=== PATIENT | female | born 1980 | race Hispanic/Latino ===

== ENCOUNTER 2017-05-21 14:03 | Emergency (ER) | payer MEDICAID ==
[2017-05-21 14:46] VITALS: BP 122/80; TEMP 98
[2017-05-21 14:47] VITALS: BMI 23.0
[2017-05-21 14:50] VITALS: PULSE 84; O2SAT 99
[2017-05-21 15:35] VITALS: RESP 16
[2017-05-21] MEDS ORDERED: Naproxen 500 MG TAB PO STA (16:44)
[2017-05-21] MEDS ORDERED: Naproxen 500 MG TAB PO ONE (16:58)
--- NOTE | 2017-05-21 17:54 | RAD ---
PROCEDURE: Left Foot Radiographs. HISTORY: pain COMPARISON: None. FINDINGS: BONES: No acute fracture or destructive bony lesion identified. JOINTS: There is a mild hallux valgus deformity SOFT TISSUES: Normal. OTHER FINDINGS: None. IMPRESSION: Mild hallux valgus deformity. No acute fracture or dislocation.
--- NOTE | 2017-05-21 18:04 | ED PDOC ---
Lower Extremity Pain/Injury Time Seen by Provider: 05/21/17 15:33 Chief Complaint (Nursing): Lower Extremity Problem/Injury Chief Complaint (Provider): Left foot pain History Per: Patient History/Exam Limitations: no limitations Onset/Duration Of Symptoms: Days (2) Current Symptoms Are (Timing): Still Present Additional Complaint(s): 36yo female, presents to ED with complaints of left foot pain for the past two days. She states the pain is mostly on the plantar aspect of her foot and is worse with walking. She denies any weakness, numbness, swelling, tenderness, decreased ROM of the foot. She denies any other medical complaints. Past Medical History Reviewed: Historical Data, Nursing Documentation, Vital Signs Vital Signs: Last Vital Signs Temp 98 F 05/21/17 14:48 Pulse 84 05/21/17 14:48 Resp 16 05/21/17 15:34 BP 122/80 05/21/17 14:48 Pulse Ox 99 05/21/17 14:48 - Medical History PMH: Back Problems, Chronic Pain - Surgical History Surgical History: No Surg Hx - Family History Family History: States: Unknown Family Hx - Immunization History Hx Tetanus Toxoid Vaccination: No Hx Influenza Vaccination: Yes (2016) Hx Pneumococcal Vaccination: No - Home Medications Home Medications: Ambulatory Orders Medication Instructions Recorded Naproxen 500 mg PO BID PRN #20 tablet 05/21/17 - Allergies Allergies/Adverse Reactions: Allergies Allergy/AdvReac Type Severity Reaction Status Date / Time No Known Allergies Allergy Verified 04/08/17 01:22 Review of Systems ROS Statement: Except As Marked, All Systems Reviewed And Found Negative Constitutional: Negative for: Fever Musculoskeletal: Positive for: Foot Pain (left) Neurological: Negative for: Weakness, Numbness Physical Exam - Reviewed Nursing Documentation Reviewed: Yes Vital Signs Reviewed: Yes - Physical Exam Comments: GENERAL APPEARANCE: Patient is awake, alert, oriented x 3, in moderate painful distress. SKIN: Warm, dry; (-) cyanosis. EXTREMITIES: (-) tenderness, (+) FROM, (-) edema, (-) deformity. Distal pulses good bilaterally. NEURO AND PSYCH: Mental status as above. Intact sensation bilaterally; normal strength in extension of the knees, plantar and dorsiflexion of the toes. DTRs symmetric. - ECG O2 Sat by Pulse Oximetry: 99 (RA) Pulse Ox Interpretation: Normal Medical Decision Making Medical Decision Making: Impression: Right foot pain Plan: -- XR Right foot -- Naproxen 500 mg PO Right foot x-ray : (-) fracture, (-) dislocation, as read by PA. On reevaluation, patient reports significant improvement. Patient laying in bed comfortably in no acute distress, feels comfortable going home. Given crutches. Advised to follow up with pod clinic in 1-2 days without fail. Advised to take medication as prescribed. Return to the emergency room at any time for any new or worsening symptoms. Patient states he fully agrees with and understands discharge instructions. States that he agrees with the plan and disposition. Verbalized and repeated discharge instructions and plan. I have given the patient opportunity to ask any additional questions. Scribe Attestation: Documented by Mony Joel acting as a scribe for MARIA M Coleman Provider Attestation: All medical record entries made by the Scribe were at my direction and personally dictated by me. I have reviewed the chart and agree that the record accurately reflects my personal performance of the history, physical exam, medical decision making, and the department course for this patient. I have also personally directed, reviewed, and agree with the discharge instructions and disposition. Disposition - Clinical Impression Clinical Impression: Foot sprain - Patient ED Disposition Is Patient to be Admitted: No Counseled Patient/Family Regarding: Studies Performed, Diagnosis, Need For Followup, Rx Given - Disposition Referrals: Podiatry Clinic [Outside] Disposition: Routine/Home Disposition Time: 18:00 Condition: STABLE Additional Instructions: Follow up with the clinic in 2 days, take medication as prescribed, rest, ice and elevate your foot. 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
== END 2017-05-21 18:18 | disposition home or self-care (01) ==
LOC: H.ER 14:03
DX: S93.602A Unspecified sprain of left foot, initial encounter (principal); X50.9XXA Other and unspecified overexertion or strenuous movements or postures, initial encounter; Y92.89 Other specified places as the place of occurrence of the external cause; G89.29 Other chronic pain

== ENCOUNTER 2017-06-05 20:59 | Emergency (ER) | payer MEDICAID ==
[2017-06-05 20:59] VITALS: BMI 23.0
[2017-06-05 21:04] VITALS: BP 141/98; PULSE 90; RESP 16; TEMP 98; O2SAT 97
[2017-06-05 22:08] LABS: BASO # 0.1 K/uL (0.0-0.2); BASO % 0.5 % (0.0-2.0); EOS # 0.1 K/uL (0.0-0.7); EOS % 0.8 % (0.0-4.0); HEMOGLOBIN 11.9 g/dL (12.0-16.0); LYMPH # 3.5 K/uL (1.0-4.3); LYMPH % 33.1 % (20.0-40.0); MEAN CELL VOLUME 85.2 fl (81.0-99.0); MEAN CORPUSCULAR HEMOGLOBIN 27.8 pg (27.0-31.0); MEAN CORPUSCULAR HGB CONC 32.6 g/dL (33.0-37.0); MEAN PLATELET VOLUME 7.8 fl (7.2-11.7); MONO # 0.7 K/uL (0.0-0.8); MONO % 6.9 % (0.0-10.0); NEUT # 6.3 K/uL (1.8-7.0); NEUT % 58.7 % (50.0-75.0); NRBC % 0.1 % (0.0-0.0); RBC 4.28 Mil/uL (3.80-5.20); RED CELL DISTRIBUTION WIDTH 14.4 % (11.5-14.5); WHITE BLOOD COUNT 10.7 K/uL (4.8-10.8)
[2017-06-05 22:11] LABS: ACETAMINOPHEN < 10.0 ug/ml (10.0-30.0); SALICYLATE < 1.0 mg/dl
[2017-06-05 22:12] LABS: BLOOD UREA NITROGEN 24 mg/dl (7-17); CALCIUM 9.9 mg/dL (8.4-10.2); GFR AFRICAN-AMERICAN > 60; GFR NON-AFRICAN AMERICAN > 60
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
[2017-06-05 22:38] LABS: BARBITURATES, UR NEGATIVE (NEGATIVE); BENZODIAZEPINES, UR NEGATIVE (NEGATIVE); OPIATES, UR NEGATIVE (NEGATIVE); PHENCYCLIDINE, UR NEGATIVE (NEGATIVE)
[2017-06-05 23:41] LABS: SQUAMOUS EPITHIAL 5 /hpf (0-5); URINE BACTERIA RARE (<OCC); URINE BILIRUBIN NEGATIVE (NEGATIVE); URINE BLOOD LARGE (NEGATIVE); URINE CLARITY CLOUDY (Clear); URINE COLOR STRAW (YELLOW); URINE GLUCOSE (UA) NEG (Normal); URINE LEUKOCYTE ESTERASE LARGE Leu/uL (Negative); URINE PROTEIN NEGATIVE (NEGATIVE); URINE UROBILINOGEN 0.2-1.0 mg/dL (0.2-1.0)
== END 2017-06-06 03:18 | disposition home or self-care (01) ==
LOC: H.ER 20:59
DX: F31.9 Bipolar disorder, unspecified (principal); G89.29 Other chronic pain

== ENCOUNTER 2017-06-06 13:08 | Inpatient (IN) | payer MEDICAID ==
[2017-06-06 13:08] VITALS: BMI 23.0
[2017-06-06 13:27] VITALS: O2SAT 99
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
[2017-06-06 15:25] LABS: HEMOGLOBIN 11.6 g/dL (12.0-16.0); MEAN CELL VOLUME 85.3 fl (81.0-99.0); MEAN CORPUSCULAR HEMOGLOBIN 27.8 pg (27.0-31.0); MEAN CORPUSCULAR HGB CONC 32.6 g/dL (33.0-37.0); RBC 4.17 Mil/uL (3.80-5.20); RED CELL DISTRIBUTION WIDTH 14.6 % (11.5-14.5); WHITE BLOOD COUNT 7.4 K/uL (4.8-10.8)
[2017-06-06 15:38] LABS: ALB/GLOB RATIO 1.3 (1.0-2.1); ALBUMIN 4.2 g/dL (3.5-5.0); ALT/SGPT 52 U/L (9-52); AST/SGOT 32 U/L (14-36); BLOOD UREA NITROGEN 21 mg/dl (7-17); CALCIUM 9.3 mg/dL (8.4-10.2); GFR AFRICAN-AMERICAN > 60; GFR NON-AFRICAN AMERICAN > 60
[2017-06-06 17:41] LABS: BARBITURATES, UR NEGATIVE (NEGATIVE); BENZODIAZEPINES, UR NEGATIVE (NEGATIVE); OPIATES, UR NEGATIVE (NEGATIVE); PHENCYCLIDINE, UR NEGATIVE (NEGATIVE)
[2017-06-06 17:46] LABS: SQUAMOUS EPITHIAL 23 /hpf (0-5); URINE BILIRUBIN NEGATIVE (NEGATIVE); URINE BLOOD LARGE (NEGATIVE); URINE CLARITY CLOUDY (Clear); URINE COLOR YELLOW (YELLOW); URINE GLUCOSE (UA) NEG (Normal); URINE LEUKOCYTE ESTERASE MOD Leu/uL (Negative); URINE PROTEIN 100 mg/dL (NEGATIVE); URINE UROBILINOGEN 0.2-1.0 mg/dL (0.2-1.0)
[2017-06-06] MEDS ORDERED: DiphenhydrAMINE 50 mg/ml Inj IM PRN (20:06)
[2017-06-06] MEDS ORDERED: Alum-Mag Hydrox-Simethicone Susp (30 mL) PO PRN (20:06)
[2017-06-06] MEDS ORDERED: Magnesium Hydroxide Susp 30 ml UD PO PRN (20:06)
--- NOTE | 2017-06-07 00:53 | PCM.BM ---
<Amarilis Chamberlain Ramona - Last Filed: 06/07/17 00:51> Treatment Plan Problems - Problems identified on initial assessmt Agitated/aggressive behavior Date Initiated: 06/07/17 Time Initiated: 00:51 Assessment reference: NA Status: Active Medication nonadherence Date Initiated: 06/07/17 Time Initiated: 00:52 Assessment reference: NA Status: Active Treatment assets and liabiliti Patient Assests: self-reliant, ADL independent, physically healthy, negotiates basic needs Patient Liabilities: poor support system - Milieu Protocol Maintain good personal hygiene: daily Encourage regular showers, every shift Remind patient to perform daily oral care Conduct patient checks and document Observation sheet: Q15 minutes Maintain personal safety: every shift Educate patient to report safety concerns to staff, every shift Monitor environment for contraband/sharps Medication safety: Monitor for expected outcome, potential side effects: every shift, Assess barriers to learning: every shift, Assess readiness for medication education: every shift <Lloyd Mccullough - Last Filed: 06/09/17 15:40> Family Contact Family involvement: Famaggie/SO not involved Family contact: Patient declines to allow family contact at present Family contact name: Pt denied. - Goals for Treatment Patient goals for treatment: Pt is currently floridly manic and lacks all insight into her current illness. Pt did report that she would like help obtaining housing. Discharge/Continuing Care - Education Needs Education Needs: Patient Medication, Patient Diagnosis/Disease Process, Patient Coping Skills, Patient Placement options, Patient Community resources, Patient Personal Hygiene/Grooming, Patient Aftercare Safety Plan - Discharge Discharge Criteria: Tolerates medication w/o severe side effects, Free of paranoid thoughts, Free of agitation, Normal sleep pattern, Ability to care for self, Reduction of target symptoms Discharge to:: Residential - Treatment Team Participation Discussed with Family/SO: No Was Patient/Family/SO present at Treatment Team Meeting: Yes <Marcia Walsh - Last Filed: 06/10/17 13:11> Discharge/Continuing Care - Treatment Team Participation Patient/Family/SO Statement: 06/10/17 13:09 Patient attended tx team this morning. Pt. continues to present with acute sxs of psychosis. Pt. presents as disorganized and tangential. Pt. presents with fight of ideas and loose associations. Pt. easily irritable but responds well to redirection. Speech: pressured. Insight into precursors to hospitalization, illness and need for tx is poor stating Im here for an evaluation. I dont need it. Pt. reports significant hx of inpatient psychiatric hospitalizations with [facility] (3 admissions) and [facility] (last admission: over 1 year ago, hospitalized for 12 months) but is unable to provide precursors to admissions. Pt. reports hx of PHP with [facility] but denies currently being connected to OPS. Pt. reports hx of arrests but was unable to provide tx team with charges or current outstanding legal issues. Pt. declined being placed on injectable despite tx team recommendation, stating I want to be a human being. I dont want to put sh*t into my body. Pt. declined to provide consent for family collateral despite staff encouragement. <Meliza Rausch - Last Filed: 06/14/17 10:01> - Diagnosis (1) Psychosis Status: Acute Interventions: pharmacotherapy 06/14/17 10:01
[2017-06-07 08:10] LABS: T4 7.69 ug/dl (5.5-11.0)
--- NOTE | 2017-06-07 11:27 | CARD ---
APPROVED REPORT EKG Measurement Heart [id number] <Conclusion> Normal sinus rhythm Normal ECG
[2017-06-07] MEDS: Risperidone M tab 1 MG PO SCH (14:09)
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
--- NOTE | 2017-06-07 18:35 | CP.PCM.CON ---
History of Present Illness - History of Present Illness History of Present Illness: 36 y/o female with no clear PMH brought to ER for crisis evaluation from [facility] after an altercation with staff there. Patient states that she lives in the [place] [facility] to live close to [facility] to [facility].She states that she was harassed at [place] [facility] by staff there and does not understand why she is brought here for psychiatric eval.Denies any psychiatric disorder and does not take any medications. She states that was told to go for group programs for bipolar disorder so she could get housing ? Denies any chest pain , SOB urinary symptoms or changes in bowel movements. Asking for Xray of left hip that according to her was dislocated 2 years ago , but she is able to walk with no problem and denies any pain . States that sometimes experiences heart pain and palpitations and her heart gets bigger , pointing to her left breast. Denies any visual or auditory hallucinations. Denies being suicidal. Allergies: NKDA PMH: Bipolar ?, hip dislocation 2 years ago in senior care Medications; [employer] [facility] ; none Family history ; None Social history; Lives in [facility] , , has no children , parents live in [place] , denies smoking ,ETOH or drug abuse ROS ; 10 point review of system negative except above Review of Systems - Review of Systems All systems: reviewed and no additional remarkable complaints except Past Patient History - Infectious Disease Hx of Infectious Diseases: None - Tetanus Immunizations Tetanus Immunization: Unknown - Past Medical History & Family History Past Medical History?: No Past Family History: Reviewed and not pertinent - Past Social History Smoking Status: Never Smoked Chewing Tobacco Use: No Cigar Use: No Alcohol: None Drugs: Denies - CARDIAC Hx Cardiac Disorders: No Hx Hypertension: No - PULMONARY Hx Respiratory Disorders: No Hx Tuberculosis: No - NEUROLOGICAL Hx Neurological Disorder: No Hx Seizures: No - HEENT Hx HEENT Problems: No - RENAL Hx Chronic Kidney Disease: No - ENDOCRINE/METABOLIC Hx Endocrine Disorders: No - HEMATOLOGICAL/ONCOLOGICAL Hx Blood Disorders: No Hx Human Immunodeficiency Virus (HIV): No - INTEGUMENTARY Hx Dermatological Problems: No - MUSCULOSKELETAL/RHEUMATOLOGICAL Hx Musculoskeletal Disorders: Yes (SEE COMMENT) Hx Falls: No Hx Osteomyelitis: Yes Other/Comment: osteomyelitis infection - required picc line 07/2016 - GASTROINTESTINAL Hx Gastrointestinal Disorders: No - GENITOURINARY/GYNECOLOGICAL Hx Genitourinary Disorders: No Hx Sexually Transmitted Disorders: No - PSYCHIATRIC Hx Substance Use: No - SURGICAL HISTORY Hx Surgeries: No - ANESTHESIA Hx Anesthesia: No Meds Allergies/Adverse Reactions: Allergies Allergy/AdvReac Type Severity Reaction Status Date / Time No Known Allergies Allergy Verified 06/05/17 21:00 - Medications Medications: Current Medications Acetaminophen (Tylenol 325mg Tab) 650 mg PO Q4 PRN PRN Reason: Pain, moderate (4-7) Al Hydrox/Mg Hydrox/Simethicone (Maalox Plus 30 Ml) 30 ml PO Q4 PRN PRN Reason: Dyspepsia Benztropine Mesylate (Cogentin) 0.5 mg PO HS [facility] Benztropine Mesylate (Cogentin) 0.5 mg PO DAILY [facility] Last Admin: 06/07/17 14:11 Dose: 0.5 mg Diphenhydramine HCl (Benadryl) 50 mg IM Q6 PRN PRN Reason: Extrapyramidal S/S Unable PO Diphenhydramine HCl (Benadryl) 50 mg PO Q6 PRN PRN Reason: Extrapyramidal Symptoms Haloperidol (Haldol) 5 mg PO Q4 PRN PRN Reason: Agitation Haloperidol Lactate (Haldol) 5 mg IM Q4 PRN PRN Reason: Agitation, Unable to Take PO Lorazepam (Ativan) 2 mg IM Q4 PRN PRN Reason: Anxiety/Agitation,Unable PO Lorazepam (Ativan) 2 mg PO Q4 PRN PRN Reason: Anxiety/Agitation Magnesium Hydroxide (Milk Of Magnesia) 30 ml PO HS PRN PRN Reason: Constipation Risperidone (Risperdal M-Tab) 1 mg PO DAILY [facility] Last Admin: 06/07/17 14:09 Dose: 1 mg Risperidone (Risperdal M-Tab) 1 mg PO [facility] Physical Exam - Constitutional Appears: Well, No Acute Distress - Head Exam Head Exam: ATRAUMATIC, NORMAL INSPECTION, NORMOCEPHALIC - Eye Exam Eye Exam: EOMI, Normal appearance, PERRL Pupil Exam: NORMAL ACCOMODATION - ENT Exam ENT Exam: Mucous Membranes Moist, Normal Exam - Neck Exam Neck exam: Positive for: Full Rom, Normal Inspection - Respiratory Exam Respiratory Exam: Clear to Auscultation Bilateral, NORMAL BREATHING PATTERN. absent: Rales, Rhonchi, Wheezes - Cardiovascular Exam Cardiovascular Exam: REGULAR RHYTHM, RRR, +S1, +S2. absent: JVD - GI/Abdominal Exam GI & Abdominal Exam: Normal Bowel Sounds, Soft. absent: Distended, Guarding, Rebound, Tenderness - Rectal Exam Rectal Exam: Deferred - Extremities Exam Extremities exam: Positive for: normal capillary refill, normal inspection, pedal pulses present. Negative for: calf tenderness, pedal edema - Back Exam Back exam: NORMAL INSPECTION - Neurological Exam Neurological exam: Alert, CN II-XII Intact, Oriented x3, Reflexes Normal - Psychiatric Exam Psychiatric exam: Flat Affect - Skin Skin Exam: Dry, Normal Color, Warm Results - Vital Signs Recent Vital Signs: Last Vital Signs Temp 96.6 F L 06/07/17 09:18 Pulse 84 06/07/17 09:18 Resp 18 06/07/17 09:18 BP 133/83 06/07/17 09:18 Pulse Ox 99 06/06/17 18:23 - Labs Result Diagrams: 06/06/17 15:15 06/06/17 15:15 Labs: Laboratory Results - last 24 hr 06/07/17 06/07/17 06/07/17 07:29 07:29 07:29 Hemoglobin A1c 5.7 Triglycerides 88 Cholesterol 177 LDL Cholesterol Direct 116 HDL Cholesterol 42 Thyroxine (T4) 7.69 TSH 3rd Generation 0.64 RPR Nonreactive Assessment & Plan - Assessment and Plan (Free Text) Assessment: 36 y/o female with no clear PMH brought to ER for crisis evaluation from [facility] after an altercation with staff there. Patient states that she lives in the [place] [facility] to live close to [facility] to [facility].She states that she was harassed at [place] [facility] by staff there and does not understand why she is brought here for psychiatric eval.Denies any psychiatric disorder and does not take any medications. She states that was told to go for group programs for bipolar disorder so she could get housing ? Denies any chest pain , SOB urinary symptoms or changes in bowel movements. Asking for Xray of left hip that according to her was dislocated 2 years ago , but she is able to walk with no problem and denies any pain . States that sometimes experiences heart pain and palpitations and her heart gets bigger , pointing to her left breast. Denies any visual or auditory hallucinations. Denies being suicidal. 1. Psychiatric disorder management as per psych patient is medically stable check urine culture since UA shows WBc >20 check TSH , RPR
[2017-06-07] MEDS ORDERED: Risperidone M tab 1 MG PO SCH (22:00)
[2017-06-08] MEDS: Risperidone M tab 1 MG PO SCH (09:53)
--- NOTE | 2017-06-08 15:13 | PCM.PYCHPN ---
Psychiatric Progress Note - Psychiatric Progress Note Patient seen today, length of contact: pt evaluated discussed with team chart reviewed Patient Chief Complaint: I have no problem the longterm staff are after me Problems Identified/Issues Discussed: pt evaluated continues to be manic, overproductive and loud speech, delusional thought process with delusions of persecution towards longterm staff pt has no insight into illness, deniedsuicidal or homicidal ideations denied command hallucinations Medical Problems: histoy of one hospitalization , non compliant DSM 5 Symptoms Update: bipolar disorder mre manic severe with psychotic features Medication Change: Yes (increase risperidone) Medical Record Reviewed: Yes Mental Status Examination - Cognitive Function Orientation: Person, Place Memory: Intact Attention: Poor Concentration: Poor Association: Loose Fund of Knowledge: Poor Decription of patient's judgement and insights: poor insight and judgment - Mood Mood: Anxious - Affect Additional comments: labile - Speech Speech: Loud, Pressured - Formal Thought Process Formal Thought Process: Delusions, Paranoia, Loosening of associations, Flight of ideas, Circumstantial Psychotic Thoughts and Behaviors: delusions of persecution - Suicidal Ideation Suicidal Ideation: No - Homicidal Ideation Homicidal Ideation: No Goal/Treatment Plan - Goal/Treatment Plan Need for Continued Stay: Severe depression anxiety, Discharge may exacerbated symptoms Progress Toward Problem(s) and Goals/Treatment Plan: start risperidone 1mg daily and 2mg qhs, cogentin 0.5mg bid with paln to uptitrate start trileptal 150mg bid follow up on psychopharmacological effects and side effect profile Estimated Date of D/C: 06/14/17
[2017-06-08] MEDS: Risperidone M TAB 2 MG PO SCH (21:12)
[2017-06-09] MEDS: Risperidone M tab 1 MG PO SCH (09:05)
--- NOTE | 2017-06-09 14:11 | PCM.PYCHPN ---
Psychiatric Progress Note - Psychiatric Progress Note Patient seen today, length of contact: pt evaluated discussed with team chart reviewed Patient Chief Complaint: I am here because my leg hurts Problems Identified/Issues Discussed: pt evaluated continues to be manic, labile, irritable , speech over productive and loud , superficialy cooperative , delusional thought process with delusions of persecution towards residential staff pt has no insight into illness, stating she is in the hospital for leg pain, pt compliant with medications denied suicidal or homicidal ideations denied command hallucinations Medical Problems: histoy of one hospitalization , non compliant DSM 5 Symptoms Update: bipolar I disorder manic severe with psychotic features Medication Change: Yes (increase risperidone) Medical Record Reviewed: Yes Mental Status Examination - Cognitive Function Orientation: Person, Place Memory: Intact Attention: WNL Concentration: Poor Association: Loose Fund of Knowledge: Poor Decription of patient's judgement and insights: poor insight and judgment - Mood Mood: Anxious, Euphoric - Affect Additional comments: labile, irritable - Speech Speech: Loud, Pressured - Formal Thought Process Formal Thought Process: Delusions, Paranoia, Loosening of associations, Flight of ideas, Circumstantial Psychotic Thoughts and Behaviors: delusions of persecution - Suicidal Ideation Suicidal Ideation: No - Homicidal Ideation Homicidal Ideation: No Goal/Treatment Plan - Goal/Treatment Plan Need for Continued Stay: Severe depression anxiety, Discharge may exacerbated symptoms Progress Toward Problem(s) and Goals/Treatment Plan: increase risperidone 2mg daily and 2mg qhs, cogentin 0.5mg bid with paln to uptitrate increase trileptal 300 mg bid follow up on psychopharmacological effects and side effect profile Estimated Date of D/C: 06/14/17
[2017-06-09] MEDS: Risperidone M TAB 2 MG PO SCH (21:19)
[2017-06-10] MEDS ORDERED: Risperidone M TAB 2 MG PO SCH (09:00)
--- NOTE | 2017-06-10 15:36 | PCM.PYCHPN ---
Psychiatric Progress Note - Psychiatric Progress Note Patient seen today, length of contact: pt evaluated discussed with team chart reviewed Patient Chief Complaint: I have been to the hospital many times but it is the police mistake Problems Identified/Issues Discussed: pt evaluated with treatment team continues to be manic, labile, irritable , speech over productive and loud , superficially cooperative ,presenting with loose association delusions of persecution reporting being hospitalized multiple times due to the unfairness of the police towards her , pt indicated being hospitalized three times in a [facility] hospital and one time in [facility] but refused to shre the charges that led to this hospitalization with the team pt has no insight into illness, stating she is in the hospital for leg pain, denied suicidal or homicidal ideations denied command hallucinations Medical Problems: histoy of one hospitalization , non compliant DSM 5 Symptoms Update: schizoaffective disorder bipolar Medication Change: Yes (increase risperidone) Medical Record Reviewed: Yes Mental Status Examination - Cognitive Function Orientation: Person, Place Memory: Intact Attention: WNL Concentration: Poor Association: Loose Fund of Knowledge: Poor Decription of patient's judgement and insights: poor insight and judgment - Mood Mood: Anxious, Euphoric - Speech Speech: Loud, Pressured - Formal Thought Process Formal Thought Process: Delusions, Paranoia, Loosening of associations, Flight of ideas, Circumstantial Psychotic Thoughts and Behaviors: delusions of persecution - Suicidal Ideation Suicidal Ideation: No - Homicidal Ideation Homicidal Ideation: No Goal/Treatment Plan - Goal/Treatment Plan Need for Continued Stay: Severe depression anxiety, Discharge may exacerbated symptoms Progress Toward Problem(s) and Goals/Treatment Plan: increase risperidone 3mg daily and 3mg qhs, cogentin 0.5mg bid increase trileptal 300 mg bid follow up on psychopharmacological effects and side effect profile Estimated Date of D/C: 06/14/17
[2017-06-10] MEDS: OXcarbazepine 300 mg/5 ml Syringe PO SCH (17:41)
[2017-06-10] MEDS: Risperidone M tab 1 MG PO SCH (21:03)
[2017-06-11] MEDS: Risperidone M tab 1 MG PO SCH ×2 (10:11→21:12)
[2017-06-11] MEDS: OXcarbazepine 300 mg/5 ml Syringe PO SCH ×2 (10:11→17:54)
--- NOTE | 2017-06-11 14:58 | PCM.PYCHPN ---
Psychiatric Progress Note - Psychiatric Progress Note Patient seen today, length of contact: pt evaluated discussed with team chart reviewed Patient Chief Complaint: It is not my fault . the detention people are against me Problems Identified/Issues Discussed: pt evaluated , calmer , more cooperative with the television script writer, speech less pressured , reported feeling less anxious, continues to have delusions of persecution towards detention staff, no insight into illness pt denied suicidal or homicidal ideations denied command hallucinations , no reported side effects of medications Medical Problems: histoy of one hospitalization , non compliant DSM 5 Symptoms Update: schizoaffective disorder bipolar Medication Change: Yes (increase risperidone) Medical Record Reviewed: Yes Mental Status Examination - Cognitive Function Orientation: Person, Place Memory: Intact Attention: WNL Concentration: Poor Association: Loose Fund of Knowledge: Poor Decription of patient's judgement and insights: poor insight and judgment - Mood Mood: Anxious, Euphoric - Speech Speech: Loud, Pressured - Formal Thought Process Formal Thought Process: Delusions, Paranoia, Loosening of associations, Flight of ideas, Circumstantial Psychotic Thoughts and Behaviors: delusions of persecution - Suicidal Ideation Suicidal Ideation: No - Homicidal Ideation Homicidal Ideation: No Goal/Treatment Plan - Goal/Treatment Plan Need for Continued Stay: Severe depression anxiety, Discharge may exacerbated symptoms Progress Toward Problem(s) and Goals/Treatment Plan: increase risperidone 3mg daily and 3mg qhs, cogentin 0.5mg bid increase trileptal 300 mg bid follow up on psychopharmacological effects and side effect profile Estimated Date of D/C: 06/14/17
[2017-06-12] MEDS: OXcarbazepine 300 mg/5 ml Syringe PO SCH ×2 (09:58→16:58)
[2017-06-12] MEDS: Risperidone M tab 1 MG PO SCH ×2 (10:01→21:38)
--- NOTE | 2017-06-12 15:02 | PCM.PYCHPN ---
Psychiatric Progress Note - Psychiatric Progress Note Patient seen today, length of contact: pt evaluated discussed with team chart reviewed Patient Chief Complaint: I am good and I want to go to school Problems Identified/Issues Discussed: pt evaluated , calmer , more cooperative with the radio news writer, speech less pressured , reported feeling less anxious, continues to have delusions of persecution towards custodial staff, continues to report she is in the hospital only for leg pain no insight into illness pt denied suicidal or homicidal ideations denied command hallucinations , no reported side effects of medications Medical Problems: histoy of one hospitalization , non compliant DSM 5 Symptoms Update: schizoaffective disorder bipolar Medication Change: No Medical Record Reviewed: Yes Mental Status Examination - Cognitive Function Orientation: Person, Place Memory: Intact Attention: WNL Concentration: Poor Association: Loose Fund of Knowledge: Poor Decription of patient's judgement and insights: poor insight and judgment - Mood Mood: Anxious, Euphoric - Speech Speech: Loud, Pressured - Formal Thought Process Formal Thought Process: Delusions, Paranoia, Loosening of associations, Flight of ideas, Circumstantial Psychotic Thoughts and Behaviors: delusions of persecution - Suicidal Ideation Suicidal Ideation: No - Homicidal Ideation Homicidal Ideation: No Goal/Treatment Plan - Goal/Treatment Plan Need for Continued Stay: Severe depression anxiety, Discharge may exacerbated symptoms Progress Toward Problem(s) and Goals/Treatment Plan: risperidone 3mg daily and 3mg qhs, cogentin 0.5mg bid increase trileptal 300 mg bid follow up on psychopharmacological effects and side effect profile group and suppoertive therapy Estimated Date of D/C: 06/14/17
[2017-06-13] MEDS: Risperidone M tab 1 MG PO SCH ×2 (09:06→21:14)
[2017-06-13] MEDS: OXcarbazepine 300 mg/5 ml Syringe PO SCH (09:07)
--- NOTE | 2017-06-13 19:28 | PCM.PYCHPN ---
Psychiatric Progress Note - Psychiatric Progress Note Patient seen today, length of contact: pt evaluated discussed with team chart reviewed Patient Chief Complaint: I want a letter for long term to take me Problems Identified/Issues Discussed: pt evaluated , continues to be superficial with limited insight into illness, pt continues to refuse to have the treatment team to contact her family or any other collateral, discussed with pt starting risperidone consta to ensure compliance, pt declined pt continues to think she is in the hospital only for medical reasons and refusing psychiatric after care pt denied suicidal or homicidal ideations denied command hallucinations , no reported side effects of medications Medical Problems: histoy of one hospitalization , non compliant DSM 5 Symptoms Update: schizoaffective disorder bipolar Medication Change: Yes Medical Record Reviewed: Yes Mental Status Examination - Cognitive Function Orientation: Person, Place Memory: Intact Attention: WNL Concentration: Poor Association: Loose Fund of Knowledge: Poor Decription of patient's judgement and insights: poor insight and judgment - Mood Mood: Anxious, Euphoric - Speech Speech: Loud, Pressured - Formal Thought Process Formal Thought Process: Delusions, Paranoia, Loosening of associations, Flight of ideas, Circumstantial Psychotic Thoughts and Behaviors: delusions of persecution - Suicidal Ideation Suicidal Ideation: No - Homicidal Ideation Homicidal Ideation: No Goal/Treatment Plan - Goal/Treatment Plan Need for Continued Stay: Severe depression anxiety, Discharge may exacerbated symptoms Progress Toward Problem(s) and Goals/Treatment Plan: risperidone 3mg daily and 3mg qhs, cogentin 0.5mg bid increase trileptal 450 mg bid follow up on psychopharmacological effects and side effect profile group and suppoertive therapy Estimated Date of D/C: 06/14/17
[2017-06-14] MEDS: Risperidone M tab 1 MG PO SCH ×2 (09:54→21:30)
--- NOTE | 2017-06-14 12:59 | RAD ---
PROCEDURE: CHEST RADIOGRAPH, 1 VIEW HISTORY: rule out tb COMPARISON: None available. FINDINGS: LUNGS: Clear. PLEURA: No pneumothorax or pleural fluid seen. CARDIOVASCULAR: Normal. OSSEOUS STRUCTURES: No significant abnormalities. VISUALIZED UPPER ABDOMEN: Normal. OTHER FINDINGS: None. IMPRESSION: No active disease.
--- NOTE | 2017-06-14 13:20 | PCM.PYCHPN ---
Psychiatric Progress Note - Psychiatric Progress Note Patient seen today, length of contact: pt evaluated discussed with team chart reviewed Patient Chief Complaint: I do not need medications when I leave,I am not sick Problems Identified/Issues Discussed: pt evaluated , superficially cooperative ,continues to be labile , edgy, irritable , when discussing medications ,pt shows no insight into illness, stating she does not need medications and that after discharge she refuses to take medications or to follow up with psychiatrist, discussed with pt importance of medication compliance for ability to function and also starting risperidone constmarkus , pt declined , refusing to be linked to social service worker , refusing ICMS and refusing to give any family member information for collateral information pt continues to be grandiose and delusional pt denied suicidal or homicidal ideations denied command hallucinations , no reported side effects of medications Medical Problems: histoy of one hospitalization , non compliant DSM 5 Symptoms Update: schizoaffective disorder bipolar Medication Change: Yes (increase trileptal) Medical Record Reviewed: Yes Mental Status Examination - Cognitive Function Orientation: Person, Place Memory: Intact Attention: WNL Concentration: Poor Association: Loose Fund of Knowledge: Poor Decription of patient's judgement and insights: poor insight and judgment - Mood Mood: Anxious, Euphoric - Speech Speech: Loud, Pressured - Formal Thought Process Formal Thought Process: Delusions, Paranoia, Loosening of associations, Flight of ideas, Circumstantial Psychotic Thoughts and Behaviors: delusions of persecution - Suicidal Ideation Suicidal Ideation: No - Homicidal Ideation Homicidal Ideation: No Goal/Treatment Plan - Goal/Treatment Plan Need for Continued Stay: Severe depression anxiety, Discharge may exacerbated symptoms Progress Toward Problem(s) and Goals/Treatment Plan: risperidone 3mg daily and 3mg qhs, cogentin 0.5mg bid trileptal 450 mg bid pt referred for screening as she has poor insight into illness, refusing compliance with after care and with medications on discharge , pt needs further stabilization at intermediate care Estimated Date of D/C: 06/18/17
--- NOTE | 2017-06-15 08:34 | PCM.PYCHPN ---
Psychiatric Progress Note - Psychiatric Progress Note Patient seen today, length of contact: pt evaluated discussed with team chart reviewed Patient Chief Complaint: pt has remained very paranoid and disorganized with poor insight and poor judgement regarding her need for treatment and refusing to take meds and refusing to stay longer in hospital .pt is preoccupied with garbage in the [facility] and has racing thoughts with flights of ideation and rapidly exposive mood threatening to leave and remains a high risk to self and others if d/c and need further stabilization and need to be recsreened by [facility] for committment as pt has put in 48 hr letter requesting d/c which expires tonight and i strongly request [facility] to accept her for committment as she is very high risk patient Problems Identified/Issues Discussed: pt has remained very paranoid and easily irritible and labile with poor insight and poor judgement and still refusing meds .pt was screened and not accepted DSM 5 Symptoms Update: Bipolar disorder severe most recent [facility] with psychotic features Medication Change: Yes (increase trileptal) Medical Record Reviewed: Yes Mental Status Examination - Cognitive Function Orientation: Person, Place Memory: Intact Attention: WNL Concentration: Poor Association: Loose Fund of Knowledge: Poor - Mood Mood: Anxious, Euphoric - Speech Speech: Loud, Pressured - Formal Thought Process Formal Thought Process: Delusions, Paranoia, Loosening of associations, Flight of ideas, Circumstantial - Suicidal Ideation Suicidal Ideation: No - Homicidal Ideation Homicidal Ideation: No Goal/Treatment Plan - Goal/Treatment Plan Need for Continued Stay: Severe depression anxiety, Discharge may exacerbated symptoms Progress Toward Problem(s) and Goals/Treatment Plan: will continue to offer meds and stabilize and rescreen her if continues to be refusing . Estimated Date of D/C: 06/18/17
[2017-06-15] MEDS: Risperidone M tab 1 MG PO SCH ×2 (08:56→21:20)
[2017-06-16] MEDS: Risperidone M tab 1 MG PO SCH ×2 (09:17→21:16)
--- NOTE | 2017-06-16 15:31 | PCM.PYCHPN ---
Psychiatric Progress Note - Psychiatric Progress Note Patient seen today, length of contact: pt evaluated discussed with team chart reviewed Patient Chief Complaint: pt has remained very paranoid and disorganized with poor insight and poor judgement regarding her need for treatment and refusing to take meds and refusing to stay longer in hospital .pt is preoccupied with garbage in the half-way and has racing thoughts with flights of ideation and rapidly exposive mood threatening to leave and remains a high risk to self and others if d/c and need further stabilization and need to be recsreened by [facility] for committment as pt has put in 48 hr letter requesting d/c which expires tonight and i strongly request [facility] to accept her for committment as she is very high risk patient Problems Identified/Issues Discussed: pt has remained very paranoid and easily irritible and labile with poor insight and poor judgement and still refusing meds .pt was screened and not accepted DSM 5 Symptoms Update: Bipolar disorder severe most recent manic with psychotic features Medication Change: Yes (increase trileptal) Medical Record Reviewed: Yes Mental Status Examination - Cognitive Function Orientation: Person, Place Memory: Intact Attention: Poor Concentration: Poor Association: Loose Fund of Knowledge: Poor - Mood Mood: Anxious, Euphoric, Other - Affect Affect: Other - Speech Speech: Loud, Pressured - Formal Thought Process Formal Thought Process: Delusions, Paranoia, Loosening of associations, Flight of ideas, Circumstantial - Suicidal Ideation Suicidal Ideation: No - Homicidal Ideation Homicidal Ideation: No Goal/Treatment Plan - Goal/Treatment Plan Need for Continued Stay: Severe depression anxiety, Discharge may exacerbated symptoms Progress Toward Problem(s) and Goals/Treatment Plan: will continue to offer meds and stabilize the patient Will order rescreening of the patient by [facility] for involuntary committment and strongly recommend involuntary committment as pt is very high risk to self and others due to psychotic thinking and poor judgement and danger to self and others if d/c. Estimated Date of D/C: 06/18/17
[2017-06-16 18:48] LABS: BASO % 0.4 % (0.0-2.0); EOS # 0.1 K/uL (0.0-0.7); EOS % 1.7 % (0.0-4.0); HEMOGLOBIN 11.7 g/dL (12.0-16.0); LYMPH # 2.8 K/uL (1.0-4.3); LYMPH % 32.8 % (20.0-40.0); MEAN CELL VOLUME 84.8 fl (81.0-99.0); MEAN CORPUSCULAR HGB CONC 33.1 g/dL (33.0-37.0); MEAN PLATELET VOLUME 8.6 fl (7.2-11.7); MONO # 0.5 K/uL (0.0-0.8); NEUT % 59.1 % (50.0-75.0); NRBC % 0.1 % (0.0-0.0); RBC 4.17 Mil/uL (3.80-5.20); RED CELL DISTRIBUTION WIDTH 13.6 % (11.5-14.5); WHITE BLOOD COUNT 8.5 K/uL (4.8-10.8)
[2017-06-16 18:49] LABS: SQUAMOUS EPITHIAL 7 /hpf (0-5); URINE BACTERIA RARE (<OCC); URINE BILIRUBIN NEGATIVE (NEGATIVE); URINE BLOOD NEGATIVE (NEGATIVE); URINE CLARITY CLOUDY (Clear); URINE COLOR YELLOW (YELLOW); URINE GLUCOSE (UA) NEG (Normal); URINE LEUKOCYTE ESTERASE LARGE Leu/uL (Negative); URINE PROTEIN 30 mg/dL (NEGATIVE); URINE UROBILINOGEN 0.2-1.0 mg/dL (0.2-1.0); WBC CLUMPS MANY /hpf
[2017-06-16 18:58] LABS: ALB/GLOB RATIO 1.3 (1.0-2.1); ALBUMIN 4.3 g/dL (3.5-5.0); CALCIUM 9.2 mg/dL (8.4-10.2)
[2017-06-17] MEDS: Risperidone M tab 1 MG PO SCH (08:56)
[2017-06-17 09:15] VITALS: BP 119/78; PULSE 102; RESP 20; TEMP 97.9
--- NOTE | 2017-06-17 14:38 | PCM.PYCHDC ---
Mental Status Examination - Mental Status Examination Orientation: Person, Place, Situation Memory: Intact Mood: Neutral Affect: Broad Speech: Loud Attention: WNL Concentration: WNL Association: WNL Fund of Knowledge: WNL Formal Thought Process: Circumstantial Description of patient's judgement and insight: poor insight and judgment Psychotic Thoughts and Behaviors: dpt on discharge denied any current psychotic symptoms Suicidal Ideation: No Current Homicidal Ideation?: No Discharge Summary - Discharge Note Reason for Hospitalization: pt with poor insight pt is 36 ys old female with unclear previous psychiatric history , referred by half-way to ER for psychiatric evaluation due to disorganized behavior pt reportedly has been argumentative with staff, presenting with paranoid delusions towards them, observed eating soap to clear her throat pt on evaluation was poor historian , reported one previous psychiatric hospitalization but unable to give details pt stated that staff members of half-way are against her , through out interview , angry, loud and irritable, with loose associations and tangential thought process , pt also presenting with grandiose delusions stating she is now on the path of establishing her career wand that is why she is not living with her parents pt denied command hallucinations denied suicidal or homicidal ideations, no reported substance use Laboratory Data: Abnormal Lab Results 06/16/17 06/16/17 06/16/17 17:35 17:35 17:35 WBC 8.5 RBC 4.17 Hgb 11.7 L Hct 35.3 MCV 84.8 MCH 28.0 MCHC 33.1 RDW 13.6 Plt Count 247 MPV 8.6 Neut % (Auto) 59.1 Lymph % (Auto) 32.8 Cocke % (Auto) 6.0 Eos % (Auto) 1.7 Baso % (Auto) 0.4 Neut # (Auto) 5.0 Lymph # (Auto) 2.8 [place] # (Auto) 0.5 Eos # (Auto) 0.1 Baso # (Auto) 0.0 Sodium 143 Potassium 4.0 Chloride 98 Carbon Dioxide 29 Anion Gap 20 BUN 24 H Creatinine 1.3 H Est GFR ( Amer) 56 Est GFR (Non-Af Amer) 47 Random Glucose 93 Calcium 9.2 Total Bilirubin 0.1 L AST 29 ALT 35 Alkaline Phosphatase 59 Total Protein 7.6 Albumin 4.3 Globulin 3.4 Albumin/Globulin Ratio 1.3 Urine Color Yellow Urine Clarity Cloudy Urine pH 7.0 Ur Specific [place] 1.017 Urine Protein 30 Urine Glucose (UA) Neg Urine Ketones Negative Urine Blood Negative Urine Nitrate Negative Urine Bilirubin Negative Urine Urobilinogen 0.2-1.0 Ur Leukocyte Esterase Large Urine RBC (Auto) 46 H Urine WBC Clumps (Auto) Many H Urine Microscopic WBC 303 H Ur Squamous Epith Cells 7 H Urine Bacteria Rare Urine Yeast (Budding) Few H Consultations:: List each consultation separately and include: 1. Reason for request. 2. Findings. 3. Follow-up Summary of Hospital Course include:: 1. Description of specific treatment plan utilized for patients during their course of treatmen. 2. Summarize the time- course for resolution of acute symptoms and/or regressed behaviors. 3. Describe issues identified and worked on during hospitalization. 4. Describe medication utilized. 5. Describe medical problems identified and treated. 6. Reassessment of suicide risk Summary of Hospital Course: pt on admission was manic , labile , irritable,with delusions of persecution pt was started on risperidone which was uptitrated to 3mg bid and trileptal which was uptitrated to 450mg bid, no reported side effects of the medications pt was compliant with medications, however presented with poor insight into illness, she was offered risperidone consta for compliance yet she declined and also refused after care, pt signed 48hour notice requesting discharge pt was referred to be screened for involuntary admission, for further stabilization but pt declined pt signed to leave the hospital against medical advise on discharge pt denied any current suicidal or homicidal ideations, denied perceptual disturbances, non elicited pt was educated about the risk and benefits of compliance with medications, prescriptions given - Diagnosis (1) Psychosis Status: Acute - Final Diagnosis (DSM 5) Condition upon Discharge: STABLE Disposition: HOME/ ROUTINE Follow-up Treatment Plan: risperidone 3mg daily and 3mg qhs, cogentin 0.5mg bid trileptal 450 mg bid pt referred for screening as she has poor insight into illness, refusing compliance with after care and with medications on discharge , pt needs further stabilization at intermediate care Prescriptions/Medication Reconciliation: Benztropine [Cogentin] 0.5 mg PO HS 30 Days #30 tab OXcarbazepine [Trileptal] 450 mg PO BID 30 Days #180 tab risperiDONE [RisperDAL Tab] 3 mg PO BID 30 Days #60 tab - Antipsychotic Medications Pt discharged on 2 or more routine antipsychotic medications: No
== END 2017-06-17 10:35 | disposition home or self-care (01) | DRG 430 ==
LOC: H.ER 13:08 → SUPCPDRO 13:08 → H.ERHOLD 16:23 → H.PSYCH 19:56
PROVIDERS: ADMIT Psychiatry & Neurology Psychiatry; ATTEND Psychiatry & Neurology Psychiatry
PROC: GZ51ZZZ Individual Psychotherapy, Behavioral (ICD-10-PCS; 2017-06-06)
PROC: GZHZZZZ Group Psychotherapy (ICD-10-PCS; principal; 2017-06-08)
DX: F31.2 Bipolar disorder, current episode manic severe with psychotic features (principal); F25.9 Schizoaffective disorder, unspecified; Z91.19 Patient's noncompliance with other medical treatment and regimen

== ENCOUNTER 2017-08-10 08:55 | Emergency (ER) | payer MEDICAID ==
[2017-08-10 08:56] VITALS: BMI 23.0
--- NOTE | 2017-08-10 09:59 | ED PDOC ---
HPI: Skin/Bite Injury Time Seen by Provider: 08/10/17 09:50 Chief Complaint (Nursing): Abnormal Skin Integrity History Per: Patient Onset/Duration Of Symptoms: Unknown Current Symptoms Are (Timing): Still Present Location Of Injury: Left: Leg Additional Complaint(s): 0.5 circular lesion noted left calf unknown duration. No pain,itching or discharge. Pt does not recall being bitten. No fever Past Medical History Vital Signs: Last Vital Signs Temp 97.9 F 08/10/17 09:20 Pulse 66 08/10/17 09:20 Resp 97 H 08/10/17 09:20 BP 111/73 08/10/17 09:20 Pulse Ox 97 08/10/17 09:16 - Medical History PMH: Back Problems, Bipolar Disorder, Depression, Chronic Pain Denies: Diabetes, Hepatitis, HIV, HTN, Chronic Kidney Disease, Seizures, Sexually Transmitted Disease - Family History Family History: States: Unknown Family Hx - Immunization History Hx Tetanus Toxoid Vaccination: No Hx Influenza Vaccination: Yes (2016) Hx Pneumococcal Vaccination: No - Home Medications Home Medications: Ambulatory Orders Medication Instructions Recorded [place]-3 Fatty Acids/Fish Oil 1 cap PO BID 06/06/17 [[place]-3 1,000 mg Softgel] Benztropine [Cogentin] 0.5 mg PO HS 30 Days #30 tab 06/17/17 OXcarbazepine [Trileptal] 450 mg PO BID 30 Days #180 tab 06/17/17 risperiDONE [RisperDAL Tab] 3 mg PO BID 30 Days #60 tab 06/17/17 - Allergies Allergies/Adverse Reactions: Allergies Allergy/AdvReac Type Severity Reaction Status Date / Time ibuprofen Allergy Mild NAUSEA Verified 08/10/17 09:37 Review of Systems Constitutional: Negative for: Fever Skin: Positive for: Lesions Physical Exam - Physical Exam Appears: Positive for: Non-toxic, No Acute Distress Skin: Negative for: Normal Color (0.5 cm circular well circunscribed flat lesion left proximal lateral calf. No erythema, tenderness or drainage.) - ECG O2 Sat by Pulse Oximetry: 97 Disposition - Clinical Impression Clinical Impression: Wart - Patient ED Disposition Is Patient to be Admitted: No Counseled Patient/Family Regarding: Diagnosis, Need For Followup - Disposition Referrals: Asher Godwin MD [Staff Provider] - Disposition: Routine/Home Disposition Time: 09:59 Condition: FAIR Instructions: Skin Warts
[2017-08-10 10:11] VITALS: BP 110/70; PULSE 76; RESP 15; TEMP 98.1; O2SAT 100
== END 2017-08-10 11:09 | disposition home or self-care (01) ==
LOC: H.ER 08:55
DX: B07.9 Viral wart, unspecified (principal)

== ENCOUNTER 2017-09-19 19:22 | Emergency (ER) | payer MEDICAID ==
[2017-09-19 19:22] VITALS: BMI 23.0
[2017-09-19 19:37] VITALS: BP 115/77; PULSE 69; RESP 18; TEMP 98.7; O2SAT 97
--- NOTE | 2017-09-19 19:56 | ED PDOC ---
Upper Extremity Pain/Injury Time Seen by Provider: 09/19/17 19:24 Chief Complaint (Nursing): Upper Extremity Problem/Injury Chief Complaint (Provider): Neck, and Right Wrist Pain History Per: Patient History/Exam Limitations: no limitations Onset/Duration Of Symptoms: Other (chronic) Current Symptoms Are (Timing): Still Present Additional Complaint(s): 37 year old female presents to the ED for evaluation of chronic neck and right wrist pain ever since she fell several years ago. She denies any recent trauma or injury, but does note the pain is worse when trying to lift something. Reports taking Naproxen without relief. Right hand dominant. PMD: Layla Trevino Past Medical History Reviewed: Historical Data, Nursing Documentation, Vital Signs Vital Signs: Last Vital Signs Temp 98.7 F 09/19/17 19:31 Pulse 69 09/19/17 19:31 Resp 18 09/19/17 19:31 BP 115/77 09/19/17 19:31 Pulse Ox 97 09/19/17 19:31 - Medical History PMH: Back Problems, Bipolar Disorder, Depression, Chronic Pain Denies: Diabetes, Hepatitis, HIV, HTN, Chronic Kidney Disease, Seizures, Sexually Transmitted Disease - Surgical History Surgical History: No Surg Hx - Family History Family History: States: Unknown Family Hx - Social History Ex-Smoker (has not smoked in the last 12 months): Yes Alcohol: None Drugs: Cannabis - Immunization History Hx Tetanus Toxoid Vaccination: No Hx Influenza Vaccination: Yes (2016) Hx Pneumococcal Vaccination: No - Home Medications Home Medications: Ambulatory Orders Medication Instructions Recorded [place]-3 Fatty Acids/Fish Oil 1 cap PO BID 06/06/17 [[place]-3 1,000 mg Softgel] Benztropine [Cogentin] 0.5 mg PO HS 30 Days #30 tab 06/17/17 OXcarbazepine [Trileptal] 450 mg PO BID 30 Days #180 tab 06/17/17 risperiDONE [RisperDAL Tab] 3 mg PO BID 30 Days #60 tab 06/17/17 Acetaminophen with Codeine 1 tab PO Q4 PRN #10 tab 09/19/17 [Tylenol with Codeine No. 3 300 mg-30 mg] - Allergies Allergies/Adverse Reactions: Allergies Allergy/AdvReac Type Severity Reaction Status Date / Time ibuprofen Allergy Mild NAUSEA Verified 09/19/17 19:31 Review of Systems ROS Statement: Except As Marked, All Systems Reviewed And Found Negative Musculoskeletal: Positive for: Neck Pain, Other (right wrist pain) Physical Exam - Reviewed Nursing Documentation Reviewed: Yes Vital Signs Reviewed: Yes - Physical Exam Appears: Positive for: No Acute Distress Head Exam: Positive for: ATRAUMATIC, NORMOCEPHALIC Skin: Positive for: Normal Color, Warm, Dry Eye Exam: Positive for: Normal appearance Neck: Positive for: Normal, Painless ROM, Supple Cardiovascular/Chest: Positive for: Regular Rate, Rhythm Respiratory: Positive for: Normal Breath Sounds. Negative for: Accessory Muscle Use, Respiratory Distress Back: Positive for: Normal Inspection. Negative for: L CVA Tenderness, R CVA Tenderness, Vertebral Tenderness Extremity: Positive for: Normal ROM. Negative for: Tenderness, Swelling Neurologic/Psych: Positive for: Alert, Oriented. Negative for: Motor/Sensory Deficits - ECG O2 Sat by Pulse Oximetry: 97 (RA) Pulse Ox Interpretation: Normal Medical Decision Making Medical Decision Making: Time: 20:07 Initial Impression: chronic cervical and wrist pain Initial Plan: --C-spine AP/LAT XR --Tylenol 1 tab PO --Right wrist XR 21:01 XRs read and interpreted by BLANKA Peacock, no acute disease or fractures noted. Scribe Attestation: Documented by Yumi Marie, acting as a scribe for Sheryl Peacock PA-C. Provider Scribe Attestation: All medical record entries made by the Scribe were at my direction and personally dictated by me. I have reviewed the chart and agree that the record accurately reflects my personal performance of the history, physical exam, medical decision making, and the department course for this patient. I have also personally directed, reviewed, and agree with the discharge instructions and disposition. Disposition - Clinical Impression Clinical Impression: Chronic pain - Patient ED Disposition Is Patient to be Admitted: No - Disposition Disposition: Routine/Home Disposition Time: 21:03 Condition: STABLE Prescriptions: Acetaminophen with Codeine [Tylenol with Codeine No. 3 300 mg-30 mg] 1 tab PO Q4 PRN #10 tab PRN Reason: Pain Instructions: Chronic Pain (DC) Forms: [employer] (Hungarian)
[2017-09-19] MEDS ORDERED: Acetaminophen-Codeine 300/30 mg Tab PO STA (20:07)
--- NOTE | 2017-09-20 08:15 | RAD ---
Date of service: 09/19/2017 PROCEDURE: Right Wrist Radiographs. HISTORY: pain COMPARISON: None. FINDINGS: BONES: No acute fracture or destructive bony lesion identified, including the navicular bone. JOINTS: Normal. No dislocation. SOFT TISSUES: Normal. OTHER FINDINGS: None. IMPRESSION: Unremarkable right wrist radiographs.
--- NOTE | 2017-09-20 08:16 | RAD ---
Date of service: 09/19/2017 PROCEDURE: Cervical Spine Radiographs. HISTORY: Pain. COMPARISON: None. FINDINGS: BONES: Alignment maintained. No fracture. Dens Intact. Craniocervical junction appears intact. DISC SPACES: Normal. SOFT TISSUES: Normal. No prevertebral soft tissue swelling. OTHER FINDINGS: None. IMPRESSION: Unremarkable cervical spine radiographs
== END 2017-09-19 21:11 | disposition home or self-care (01) ==
LOC: H.ER 19:22
DX: M25.531 Pain in right wrist (principal); G89.29 Other chronic pain; F31.9 Bipolar disorder, unspecified; M54.2 Cervicalgia

== ENCOUNTER 2017-10-16 14:46 | Emergency (ER) | payer MEDICAID ==
[2017-10-16 14:47] VITALS: BMI 23.0
[2017-10-16 15:06] VITALS: BP 105/69; PULSE 68; RESP 14; TEMP 98.8; O2SAT 97
[2017-10-16] MEDS ORDERED: Absorbable Gelatin Sponge Size 100 TP ONE (15:40)
[2017-10-16] MEDS ORDERED: Tdap Vaccine 0.5 ml Vial (10-64 yrs) IM ONE ×2 (15:40→16:00)
--- NOTE | 2017-10-16 15:44 | ED PDOC ---
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 Active bleeding is noted. Unknown tetanus PMD: none provided Past Medical History Reviewed: Historical Data, Nursing Documentation, Vital Signs Vital Signs: Last Vital Signs Temp 98.8 F 10/16/17 14:57 Pulse 68 10/16/17 14:57 Resp 14 10/16/17 14:57 BP 105/69 10/16/17 14:57 Pulse Ox 97 10/16/17 14:57 - Medical History PMH: Back Problems, Bipolar Disorder, Depression, Chronic Pain Denies: Diabetes, Hepatitis, HIV, HTN, Chronic Kidney Disease, Seizures, Sexually Transmitted Disease - Surgical History Surgical History: No Surg Hx - Family History Family History: States: Unknown Family Hx - Immunization History Hx Tetanus Toxoid Vaccination: No Hx Influenza Vaccination: Yes (2017) Hx Pneumococcal Vaccination: No - Home Medications Home Medications: Ambulatory Orders Medication Instructions Recorded [place]-3 Fatty Acids/Fish Oil 1 cap PO BID 06/06/17 [[place]-3 1,000 mg Softgel] Benztropine [Cogentin] 0.5 mg PO HS 30 Days #30 tab 06/17/17 OXcarbazepine [Trileptal] 450 mg PO BID 30 Days #180 tab 06/17/17 risperiDONE [RisperDAL Tab] 3 mg PO BID 30 Days #60 tab 06/17/17 Acetaminophen with Codeine 1 tab PO Q4 PRN #10 tab 09/19/17 [Tylenol with Codeine No. 3 300 mg-30 mg] - Allergies Allergies/Adverse Reactions: Allergies Allergy/AdvReac Type Severity Reaction Status Date / Time ibuprofen Allergy Mild NAUSEA Verified 10/16/17 14:57 Review of Systems ROS Statement: Except As Marked, All Systems Reviewed And Found Negative Skin: Positive for: Other (avulsion to left thumb) Physical Exam - Reviewed Nursing Documentation Reviewed: Yes Vital Signs Reviewed: Yes - Physical Exam Appears: Positive for: Non-toxic, No Acute Distress Head Exam: Positive for: ATRAUMATIC, NORMOCEPHALIC Skin: Positive for: Warm, Dry. Negative for: Normal Color Eye Exam: Positive for: Normal appearance Neck: Positive for: Normal, Painless ROM Cardiovascular/Chest: Negative for: Bradycardia, Tachycardia Respiratory: Negative for: Respiratory Distress Extremity: Positive for: Normal ROM, Other (Superficial skin avulsion to left distal thumb) Neurologic/Psych: Positive for: Alert, Oriented. Negative for: Motor/Sensory Deficits - ECG O2 Sat by Pulse Oximetry: 97 (RA) Pulse Ox Interpretation: Normal Medical Decision Making Medical Decision Making: Initial Impression: Skin avulsion to left thumb Initial Plan: Tetanus 0.5mL IM Gelatin Sponge 100 1 spg TP wound irrigated. gell foam applied. Scribe Attestation: Documented by Patrick Hu acting as a scribe for Rissa FRANZ. Provider Scribe Attestation: All medical record entries made by the Scribe were at my direction and personally dictated by me. I have reviewed the chart and agree that the record accurately reflects my personal performance of the history, physical exam, medical decision making, and the department course for this patient. I have also personally directed, reviewed, and agree with the discharge instructions and disposition. Disposition - Clinical Impression Clinical Impression: Skin avulsion, Tetanus toxoid vaccination administered at current visit - Patient ED Disposition Is Patient to be Admitted: No Counseled Patient/Family Regarding: Diagnosis, Need For Followup - Disposition Disposition: Routine/Home Disposition Time: 16:28 Condition: GOOD Instructions: Wound Care (DC) Forms: [employer] (Swedish)
[2017-10-16] MEDS ORDERED: Absorbable Gelatin Sponge Size 12-7 ONE (16:00)
== END 2017-10-16 16:37 | disposition home or self-care (01) ==
LOC: H.ER 14:46
DX: S61.012A Laceration without foreign body of left thumb without damage to nail, initial encounter (principal); W26.0XXA Contact with knife, initial encounter; Y93.G1 Activity, food preparation and clean up; Z86.59 Personal history of other mental and behavioral disorders; G89.29 Other chronic pain; Z23 Encounter for immunization

== ENCOUNTER 2017-10-19 19:00 | Emergency (ER) | payer MEDICAID ==
[2017-10-19 19:08] VITALS: BMI 23.3
[2017-10-19 19:11] VITALS: BP 122/78; PULSE 93; RESP 16; TEMP 98.1; O2SAT 98
--- NOTE | 2017-10-19 19:18 | ED PDOC ---
HPI: General Adult Time Seen by Provider: 10/19/17 19:12 Chief Complaint (Nursing): Wound Check Chief Complaint (Provider): Wound Check History Per: Patient History/Exam Limitations: no limitations Onset/Duration Of Symptoms: Days (x3) Current Symptoms Are (Timing): Still Present Additional Complaint(s): 37 year old right handed female presenting for wound check. Patient was seen here 3 days ago for evaluation of a skin avulsion to her left thumb and discharged home. Patient is here today for a wound check. She denies pain or drainage from wound. Tetanus is up to date. PMD: Dr. Shun Trevino Past Medical History Reviewed: Historical Data, Nursing Documentation, Vital Signs Vital Signs: Last Vital Signs Temp 98.1 F 10/19/17 19:08 Pulse 93 H 10/19/17 19:08 Resp 16 10/19/17 19:08 BP 122/78 10/19/17 19:08 Pulse Ox 98 10/19/17 19:24 - Medical History PMH: Back Problems, Bipolar Disorder, Depression, Chronic Pain - Surgical History Surgical History: No Surg Hx - Family History Family History: States: Unknown Family Hx - Living Arrangements Living Arrangements: Other (non-domiciled) - Social History Current smoker - smoking cessation education provided: No Alcohol: None Drugs: Denies - Immunization History Hx Tetanus Toxoid Vaccination: Yes - Home Medications Home Medications: Ambulatory Orders Medication Instructions Recorded [place]-3 Fatty Acids/Fish Oil 1 cap PO BID 06/06/17 [[place]-3 1,000 mg Softgel] Benztropine [Cogentin] 0.5 mg PO HS 30 Days #30 tab 06/17/17 OXcarbazepine [Trileptal] 450 mg PO BID 30 Days #180 tab 06/17/17 risperiDONE [RisperDAL Tab] 3 mg PO BID 30 Days #60 tab 06/17/17 Acetaminophen with Codeine 1 tab PO Q4 PRN #10 tab 09/19/17 [Tylenol with Codeine No. 3 300 mg-30 mg] - Allergies Allergies/Adverse Reactions: Allergies Allergy/AdvReac Type Severity Reaction Status Date / Time ibuprofen Allergy Mild NAUSEA Verified 10/19/17 19:07 Review of Systems ROS Statement: Except As Marked, All Systems Reviewed And Found Negative Constitutional: Negative for: Fever Skin: Positive for: Other (wound check of skin avulsion to left thumb) Physical Exam - Reviewed Nursing Documentation Reviewed: Yes Vital Signs Reviewed: Yes - Physical Exam Appears: Positive for: Well, Non-toxic, No Acute Distress Head Exam: Positive for: ATRAUMATIC Skin: Positive for: Normal Color. Negative for: Rash Eye Exam: Positive for: Normal appearance Respiratory: Negative for: Respiratory Distress Extremity: Positive for: Other (well healing skin avulsion to distal phalanx of left thumb, (-) active bleeding) Neurologic/Psych: Positive for: Alert, Oriented - ECG O2 Sat by Pulse Oximetry: 98 (RA) Pulse Ox Interpretation: Normal Medical Decision Making Medical Decision Makin Impression: 37 year old female here for wound check Procedure Note: Bandage and gel foam removed without any difficulty. Wound cleansed with saline and dressed with Bacitracin and sterile bandage. Patient was given wound care instructions and was instructed to follow up with clinic as needed. Scribe Attestation: Documented by Adriano Reed, acting as a scribe for Sheryl Cheung PA-C. Provider Scribe Attestation: All medical record entries made by the scribe were at my direction and personally dictated by me. I have reviewed the chart and agree that the record accurately reflects my personal performance of the history, physical exam, medical decision making, and the department course for this patient. I have also personally directed, reviewed, and agree with the discharge instructions and disposition. Disposition - Clinical Impression Clinical Impression: Encounter for wound re-check - Disposition Referrals: [facility] [Outside] Disposition Time: 21:01 Condition: STABLE Additional Instructions: Wash wound daily with soap and water. Follow up as needed with clinic. Instructions: Wound Care (DC) Forms: [employer] (Romanian)
== END 2017-10-19 19:41 | disposition home or self-care (01) ==
LOC: H.ER 19:00
DX: Z48.01 Encounter for change or removal of surgical wound dressing (principal)

== ENCOUNTER 2017-10-23 20:10 | Emergency (ER) | payer MEDICAID ==
[2017-10-23 20:10] VITALS: BMI 23.3
[2017-10-23 20:20] VITALS: BP 109/75; PULSE 67; RESP 17; TEMP 98.6; O2SAT 99
--- NOTE | 2017-10-23 21:00 | ED PDOC ---
HPI: Skin/Bite Injury Time Seen by Provider: 10/23/17 20:23 Chief Complaint (Nursing): Finger,Hand,&Wrist Chief Complaint (Provider): hand warts History Per: Patient History/Exam Limitations: no limitations Current Symptoms Are (Timing): Still Present Additional Complaint(s): 37 year old female well known to the ED for frequent visits presents today complaining of warts on her hands ongoing for several months. Patient used over- the-counter topical treatment this has not helped. She denies any fever or chills. No drainage from affected area. PMD: none Past Medical History Reviewed: Historical Data, Nursing Documentation, Vital Signs Vital Signs: Last Vital Signs Temp 98.6 F 10/23/17 20:18 Pulse 67 10/23/17 20:18 Resp 17 10/23/17 20:18 BP 109/75 10/23/17 20:18 Pulse Ox 99 10/23/17 21:02 - Medical History PMH: Back Problems, Bipolar Disorder, Depression, Chronic Pain - Surgical History Surgical History: No Surg Hx - Family History Family History: States: No Known Family Hx - Living Arrangements Living Arrangements: Other ([facility]) - Social History Current smoker - smoking cessation education provided: Yes Alcohol: None Drugs: Cannabis - Home Medications Home Medications: Ambulatory Orders Medication Instructions Recorded [place]-3 Fatty Acids/Fish Oil 1 cap PO BID 06/06/17 [[place]-3 1,000 mg Softgel] Benztropine [Cogentin] 0.5 mg PO HS 30 Days #30 tab 06/17/17 OXcarbazepine [Trileptal] 450 mg PO BID 30 Days #180 tab 06/17/17 risperiDONE [RisperDAL Tab] 3 mg PO BID 30 Days #60 tab 06/17/17 Acetaminophen with Codeine 1 tab PO Q4 PRN #10 tab 09/19/17 [Tylenol with Codeine No. 3 300 mg-30 mg] - Allergies Allergies/Adverse Reactions: Allergies Allergy/AdvReac Type Severity Reaction Status Date / Time ibuprofen Allergy Mild NAUSEA Verified 10/19/17 19:07 Review of Systems ROS Statement: Except As Marked, All Systems Reviewed And Found Negative Skin: Positive for: Other (warts to bilateral hands) Physical Exam - Reviewed Nursing Documentation Reviewed: Yes Vital Signs Reviewed: Yes - Physical Exam Appears: Positive for: Well, Non-toxic, No Acute Distress Head Exam: Positive for: ATRAUMATIC, NORMAL INSPECTION, NORMOCEPHALIC Skin: Positive for: Normal Color, Rash (multiple non infectious warts to bilateral hands) Eye Exam: Positive for: Normal appearance Extremity: Positive for: Normal ROM (all digits of both hands) Neurologic/Psych: Positive for: Alert, Oriented - ECG O2 Sat by Pulse Oximetry: 99 (RA) Pulse Ox Interpretation: Normal Medical Decision Making Medical Decision Makin37 y/o female with warts to both hands Patient was given wound care instructions and was referred to clinic for follow up. Scribe Attestation: Documented by Yumi Marie, acting as a scribe for Sheryl Cheung PA-C. Provider Scribe Attestation: All medical record entries made by the Scribe were at my direction and personally dictated by me. I have reviewed the chart and agree that the record accurately reflects my personal performance of the history, physical exam, medical decision making, and the department course for this patient. I have also personally directed, reviewed, and agree with the discharge instructions and disposition. Disposition - Clinical Impression Clinical Impression: Warts - Patient ED Disposition Is Patient to be Admitted: No Counseled Patient/Family Regarding: Need For Followup - Disposition Referrals: [facility] [Outside] Disposition: Routine/Home Disposition Time: 21:20 Condition: STABLE Additional Instructions: Follow up with clinic. Instructions: Skin Warts Forms: [employer] (Telugu)
== END 2017-10-23 21:31 | disposition home or self-care (01) ==
LOC: H.ER 20:10
DX: B07.9 Viral wart, unspecified (principal); Z86.59 Personal history of other mental and behavioral disorders; F17.200 Nicotine dependence, unspecified, uncomplicated; G89.29 Other chronic pain

== ENCOUNTER 2018-07-23 07:04 | Emergency (ER) | payer MEDICAID ==
[2018-07-23 07:17] VITALS: BP 123/82; PULSE 84; RESP 15; TEMP 98.2; O2SAT 98
[2018-07-23 07:18] VITALS: BMI 26.8
--- NOTE | 2018-07-23 07:59 | ED PDOC ---
HPI: Head Injury Time Seen by Provider: 07/23/18 07:12 Chief Complaint (Nursing): Headache Chief Complaint (Provider): Headache History Per: Patient History/Exam Limitations: no limitations Onset/Duration Of Symptoms: Days (6 months ago) Additional Complaint(s): Pt. states she fell 6 months ago and has a headache to the back from it, since then. Takes tylenol and it gets better. Wants a rx for tylenol. Headache is not the worst in her life. No neck pain, numbness, tingles, weakness, vision changes, abd pain, chest pain, dizziness, leg pain, arm pain, or new injury. Not suicidal or homicidal. Lives in the skilled nursing. Past Medical History Reviewed: Nursing Documentation, Vital Signs Vital Signs: Last Vital Signs Temp 98.2 F 07/23/18 07:15 Pulse 84 07/23/18 07:15 Resp 15 07/23/18 07:15 BP 123/82 07/23/18 07:15 Pulse Ox 98 07/23/18 07:17 - Medical History PMH: Back Problems, Bipolar Disorder, Depression, Chronic Pain Denies: Diabetes, Hepatitis, HIV, HTN, Chronic Kidney Disease, Seizures, Sexually Transmitted Disease - Surgical History Surgical History: No Surg Hx - Family History Family History: States: Unknown Family Hx - Immunization History Hx Tetanus Toxoid Vaccination: Yes Hx Influenza Vaccination: Yes (2016) Hx Pneumococcal Vaccination: No - Home Medications Home Medications: Ambulatory Orders Medication Instructions Recorded [place]-3 Fatty Acids/Fish Oil 1 cap PO BID 06/06/17 [[place]-3 1,000 mg Softgel] Benztropine [Cogentin] 0.5 mg PO HS 30 Days #30 tab 06/17/17 OXcarbazepine [Trileptal] 450 mg PO BID 30 Days #180 tab 06/17/17 risperiDONE [RisperDAL Tab] 3 mg PO BID 30 Days #60 tab 06/17/17 Acetaminophen with Codeine 1 tab PO Q4 PRN #10 tab 09/19/17 [Tylenol with Codeine No. 3 300 mg-30 mg] - Allergies Allergies/Adverse Reactions: Allergies Allergy/AdvReac Type Severity Reaction Status Date / Time ibuprofen Allergy Mild NAUSEA Verified 07/23/18 07:17 Review of Systems ROS Statement: Except As Marked, All Systems Reviewed And Found Negative Neurological: Positive for: Headache Physical Exam - Reviewed Nursing Documentation Reviewed: Yes Vital Signs Reviewed: Yes - Physical Exam Appears: Positive for: Non-toxic, No Acute Distress Head Exam: Positive for: ATRAUMATIC, NORMAL INSPECTION, NORMOCEPHALIC Skin: Positive for: Normal Color, Warm, DRY Eye Exam: Positive for: EOMI, Normal appearance, PERRL ENT: Positive for: Normal ENT Inspection Neck: Positive for: Normal, Painless ROM, Supple Cardiovascular/Chest: Positive for: Regular Rate, Rhythm Respiratory: Positive for: CNT, Normal Breath Sounds Gastrointestinal/Abdominal: Positive for: Normal Exam, Soft. Negative for: Tenderness Back: Positive for: Normal Inspection. Negative for: L CVA Tenderness, R CVA Tenderness Extremity: Positive for: Normal ROM. Negative for: Tenderness, Pedal Edema Neurological/Psych: Positive for: Awake, Alert, Normal Tone, Symmetric/Intact Strength, Oriented, animal stunner II-XII. Negative for: Motor/Sensory Deficits, Facial Droop - ECG O2 Sat by Pulse Oximetry: 98 - Progress ED Course And Treament: 715: Pt. to get imaging and rx tylenol if all is ok. 815: Pt. not found in room. Left before treatment and evaluation complete. Last seen pt. was aaox3, had capacity to make decisions, and ambulating with no issues. Disposition - Clinical Impression Clinical Impression: Headache - Patient ED Disposition Is Patient to be Admitted: No - Disposition Disposition: Left W/O Treatment Disposition Time: 08:17 Condition: STABLE
== END 2018-07-23 08:10 | disposition left against medical advice (07) ==
LOC: H.ER 07:04
DX: R51 Headache (principal)

== ENCOUNTER 2018-07-24 18:59 | Emergency (ER) | payer MEDICAID ==
[2018-07-24 19:00] VITALS: BMI 26.8
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
[2018-07-24 20:57] LABS: SQUAMOUS EPITHIAL 6 /hpf (0-5); URINE BILIRUBIN NEGATIVE (NEGATIVE); URINE BLOOD NEGATIVE (NEGATIVE); URINE CLARITY SLIGHTY-CLOUDY (Clear); URINE COLOR YELLOW (YELLOW); URINE GLUCOSE (UA) NEG (NEGATIVE); URINE LEUKOCYTE ESTERASE NEG Leu/uL (Negative); URINE PROTEIN NEGATIVE (NEGATIVE); URINE UROBILINOGEN 0.2-1.0 mg/dL (0.2-1.0)
[2018-07-24 21:10] LABS: BARBITURATES, UR NEGATIVE (NEGATIVE); BENZODIAZEPINES, UR NEGATIVE (NEGATIVE); OPIATES, UR NEGATIVE (NEGATIVE); PHENCYCLIDINE, UR NEGATIVE (NEGATIVE)
[2018-07-24 21:51] VITALS: BP 105/85; PULSE 86; RESP 19; TEMP 98.3; O2SAT 100
--- NOTE | 2018-07-25 15:18 | RAD ---
Date of service: 07/24/2018 PROCEDURE: Left Foot Radiographs. HISTORY: Posttraumatic pain. COMPARISON: None. TECHNIQUE: 3 views obtained. FINDINGS: BONES: Normal. No fracture. JOINTS: Normal. SOFT TISSUES: Normal. OTHER FINDINGS: None. IMPRESSION: Normal left foot radiographs.
== END 2018-07-24 22:48 | disposition home or self-care (01) ==
LOC: H.ER 18:59
DX: F31.9 Bipolar disorder, unspecified (principal); G89.29 Other chronic pain; Z87.891 Personal history of nicotine dependence; Z00.8 Encounter for other general examination